=== PATIENT | male | born 1930 | race Caucasian/White ===

== ENCOUNTER 2017-12-09 11:43 | Emergency (ER) | payer OTHER ==
[~2017-12-09] VITALS: Ht 177.8 cm; Wt 103.4 kg
[~2017-12-09 11:43] MED LIST: AGGRENOX CAPSU1 EACH; AGGRENOX CAPSU1 EACH OR; ALLOPURINOL 10100 M1 OR; ALLOPURINOL 10100 M1 PO; BACTRIM DS TAB1 EACH PO; CARVEDILOL6.25 MG; CIPRO500 MG PO; COLACE100 MG PO; COREG; COREG6.25 MG PO; COUMADIN 5 MG TA5 M1 PO; FISH OIL 1,0001 EAC5; GLIPIZIDE ER2.5 MG PO; GLIPIZIDE XL2.5 MG PO; LISINOPRIL40 MG PO; LOPID600 MG OR; LOPID600 MG PO; LOVASTATIN 20 M20 MG PO; MACROBID 100 M100 M2 PO; MAGNESIUM OXID400 MG PO; MELATONIN3 MG PO; MIRALAX17 GM PO; MULTIVITAMINS; MULTIVITAMINS PO; MULTIVITAMINS1 EAC7 PO; NIACIN 500 MG500 M1 PO; NIASPAN 500 MG500 M1 PO; OMEGA-31000 M1 PO; ONDANSETRON HCL4 M2 PO; PRAVACHOL40 MG; PRAVASTATIN SOD40 MG PO; PRINIVIL5 MG PO; PYRIDOXINE HCL50 MG; PYRIDOXINE HCL50 MG PO; TYLENOL325 MG PO; VERAPAMIL ER120 MG PO; VITAMIN B-12500 MCG PO; VITAMIN B-625 MG PO
[2017-12-09 11:58] LABS: URINE BILIRUBIN NEGATIVE (Negative); URINE BLOOD 3+ (Negative); URINE CLARITY CLEAR; URINE COLOR YELLOW; URINE GLUCOSE-RANDOM NEGATIVE (Negative); URINE KETONES NEGATIVE (Negative); URINE LEUKOCYTES-REFLEX 1+ (Negative); URINE NITRITE-REFLEX NEGATIVE (Negative); URINE PROTEIN 2+ (Negative); URINE SPECIFIC GRAVITY 1.015 (1.005-1.030); URINE UROBILINOGEN 0.2 E.U./dl (0.2-1.0)
[2017-12-09 12:06] LABS: BACTERIA-REFLEX 1-9 Few /HPF (None Seen); CASTS None Seen /LPF (None Seen); CRYSTALS None Seen /LPF (None Seen); MUCUS 0-3 Light strn/LPF (None Seen); SQUAMOUS 0-3 Few /LPF (0-3); URINE WBC-REFLEX 6-15 Few /HPF (0-5)
[2017-12-09] MEDS ORDERED: KEFLEX500 M1 PO (12:17)
[2017-12-09 12:38] VITALS: BP 142/61
== END 2017-12-09 12:40 | disposition home or self-care (01) ==
LOC: M.ERS 11:43
PROVIDERS: Emergency Medicine Emergency Medical Services
DX: N39.0 Urinary tract infection, site not specified (principal); E11.22 Type 2 diabetes mellitus with diabetic chronic kidney disease; N18.9 Chronic kidney disease, unspecified; G43.909 Migraine, unspecified, not intractable, without status migrainosus; Z85.828 Personal history of other malignant neoplasm of skin; Z86.73 Personal history of transient ischemic attack (TIA), and cerebral infarction without residual deficits; Z79.899 Other long term (current) drug therapy; Z88.0 Allergy status to penicillin; Z88.5 Allergy status to narcotic agent; Z88.8 Allergy status to other drugs, medicaments and biological substances

== ENCOUNTER → 2017-12-14 | Outpatient (CLI) | payer OTHER ==
[~2017-12-14] MED LIST changes: +KEFLEX500 M1 PO
== END ==
LOC: M.ULTRA 10:18
DX: E11.9 Type 2 diabetes mellitus without complications (principal); G47.33 Obstructive sleep apnea (adult) (pediatric); G43.909 Migraine, unspecified, not intractable, without status migrainosus

== ENCOUNTER → 2019-04-24 | Outpatient (CLI) | payer OTHER ==
[~2019-04-24] MED LIST changes: +B COMPLEX1 EACH PO; +GLIMEPIRIDE1 MG PO; +MAGNESIUM500 MG PO; +PRESERVISION A1 EAC2 PO
== END ==
LOC: M.PC 08:29
DX: M75.42 Impingement syndrome of left shoulder (principal); M79.602 Pain in left arm; Z88.5 Allergy status to narcotic agent; Z88.0 Allergy status to penicillin; Z88.8 Allergy status to other drugs, medicaments and biological substances

== ENCOUNTER → 2019-04-28 | Outpatient (CLI) | payer OTHER | LOC: M.MRI 07:02 | DX: M75.102 Unspecified rotator cuff tear or rupture of left shoulder, not specified as traumatic (principal); M19.012 Primary osteoarthritis, left shoulder ==

== ENCOUNTER 2019-06-13 15:22 | Inpatient (IN) | payer OTHER ==
[~2019-06-13] VITALS: Ht 175.3 cm; Wt 94.3 kg
[2019-06-13 15:51] VITALS: BP 133/67
[2019-06-13 16:42] LABS: ABSOLUTE LYMPHOCYTES 0.8 thou/uL (0.8-5.3); ABSOLUTE MONOCYTES 0.8 thou/uL (0.0-1.2); BASOPHILS 0.7 %; EOSINOPHILS 0.2 %; HEMATOCRIT 42.1 % (42.0-52.0); HEMOGLOBIN 14.4 gm/dL (14.0-18.0); MCH 28.6 pg (26.0-34.0); MCHC 34.2 g/dL (28.0-37.0); MCV 83.7 fL (80.0-100.0); MONOCYTES 16.7 %; MPV 8.1 fl. (7.2-11.1); NUCLEATED RBCS 0 /100WBC; PLATELET COUNT* 217 thou/uL (150-400); POLYS 64.4 %; RBC 5.03 mil/uL (4.50-6.00); WBC 4.6 thou/uL (4.0-11.0)
[2019-06-13 16:45] LABS: CALCIUM 10.1 mg/dL (8.5-10.1); CREATININE 2.2 mg/dL (0.6-1.3); POTASSIUM 4.2 mmol/L (3.5-5.1)
[2019-06-13 16:56] LABS: ALBUMIN 3.4 g/dL (3.4-5.0); TOTAL BILIRUBIN 0.4 mg/dL (<0.1-1.0); TOTAL PROTEIN 7.7 g/dL (6.4-8.2)
[2019-06-13 16:58] LABS: PCO2 26.2 mmHg (35.0-45.0); PO2 70.3 mmHg (75.0-100.0)
[2019-06-13 17:00] LABS: INR 16.3; PROTIME 151.2 Seconds (9.20-11.50)
[2019-06-13 20:28] VITALS: BP 111/55
[2019-06-13 20:32] LABS: PROTIME 155.7 Seconds (9.20-11.50)
[2019-06-13 20:41] LABS: INR 16.9
[2019-06-13 21:27] VITALS: BP 149/68
[2019-06-14] VITALS: BP 113/63
[2019-06-14 04:00] VITALS: BP 136/74
[2019-06-14 04:42] LABS: URINE BILIRUBIN NEGATIVE (Negative); URINE BLOOD 1+ (Negative); URINE CLARITY CLEAR; URINE COLOR YELLOW; URINE GLUCOSE-RANDOM NEGATIVE (Negative); URINE KETONES TRACE (Negative); URINE LEUKOCYTES-REFLEX TRACE (Negative); URINE PROTEIN 2+ (Negative); URINE SPECIFIC GRAVITY 1.025 (1.005-1.030); URINE UROBILINOGEN 0.2 E.U./dl (0.2-1.0)
[2019-06-14 04:47] LABS: URINE NITRITE-REFLEX POSITIVE (Negative)
[2019-06-14 05:18] LABS: CASTS None Seen /LPF (None Seen); CRYSTALS None Seen /LPF (None Seen); MUCUS 0-3 Light strn/LPF (None Seen); SQUAMOUS 0-3 Few /LPF (0-3); URINE RBC 3-10 Few /HPF (0-2)
[2019-06-14 05:28] LABS: ABSOLUTE LYMPHOCYTES 0.8 thou/uL (0.8-5.3); ABSOLUTE MONOCYTES 0.7 thou/uL (0.0-1.2); ABSOLUTE NEUTROPHILS 2.9 thou/uL (1.6-8.1); BASOPHILS 0.3 %; HEMATOCRIT 41.5 % (42.0-52.0); HEMOGLOBIN 14.2 gm/dL (14.0-18.0); LYMPHOCYTES 18.8 %; MCH 28.6 pg (26.0-34.0); MCHC 34.2 g/dL (28.0-37.0); MCV 83.9 fL (80.0-100.0); MONOCYTES 16.5 %; MPV 7.8 fl. (7.2-11.1); NUCLEATED RBCS 0 /100WBC; PLATELET COUNT* 220 thou/uL (150-400); POLYS 64.4 %; RBC 4.94 mil/uL (4.50-6.00); RDW-CV 16.5 % (10.5-14.5); WBC 4.5 thou/uL (4.0-11.0)
[2019-06-14] MEDS ORDERED: VITAMIN B-121000 MC2 PO (05:29)
[2019-06-14] MEDS ORDERED: Vitamin D3 PO (05:30)
[2019-06-14] MEDS ORDERED: MUCUS ER600 M1 PO (05:31)
[2019-06-14] MEDS ORDERED: EPIDIOLEX100 MG/1 M PO (05:33)
[2019-06-14 05:34] LABS: PROTIME 133.4 Seconds (9.20-11.50)
[2019-06-14 05:37] LABS: INR 14.4
[2019-06-14 05:52] LABS: ALBUMIN 3.2 g/dL (3.4-5.0); CALCIUM 9.8 mg/dL (8.5-10.1); CREATININE 1.8 mg/dL (0.6-1.3); MAGNESIUM 2.2 mg/dL (1.8-2.4); PHOSPHORUS* 2.9 mg/dL (2.5-4.9); POTASSIUM 3.8 mmol/L (3.5-5.1); TOTAL BILIRUBIN 0.4 mg/dL (<0.1-1.0); TOTAL PROTEIN 7.2 g/dL (6.4-8.2)
[2019-06-14 08:31] VITALS: BP 138/67
[2019-06-14 12:00] VITALS: BP 153/88
[2019-06-14 13:41] LABS: PROTIME 102.4 Seconds (9.20-11.50)
[2019-06-14 13:45] LABS: INR 10.9
[2019-06-14 16:00] VITALS: BP 137/66
[2019-06-14 20:00] VITALS: BP 128/58
[2019-06-15 03:40] VITALS: BP 122/52
[2019-06-15 04:23] LABS: ABSOLUTE LYMPHOCYTES 0.7 thou/uL (0.8-5.3); ABSOLUTE MONOCYTES 0.7 thou/uL (0.0-1.2); ABSOLUTE NEUTROPHILS 3.2 thou/uL (1.6-8.1); BASOPHILS 0.2 %; EOSINOPHILS 0.1 %; HEMATOCRIT 40.5 % (42.0-52.0); HEMOGLOBIN 13.7 gm/dL (14.0-18.0); MCH 28.6 pg (26.0-34.0); MCHC 33.9 g/dL (28.0-37.0); MCV 84.4 fL (80.0-100.0); MONOCYTES 14.9 %; MPV 7.8 fl. (7.2-11.1); NUCLEATED RBCS 0 /100WBC; PLATELET COUNT* 224 thou/uL (150-400); POLYS 69.8 %; RDW-CV 16.1 % (10.5-14.5); WBC 4.5 thou/uL (4.0-11.0)
[2019-06-15 04:39] LABS: PROTIME 18.1 Seconds (9.20-11.50)
[2019-06-15 04:42] LABS: ALBUMIN 2.8 g/dL (3.4-5.0); CALCIUM 10.1 mg/dL (8.5-10.1); CREATININE 1.8 mg/dL (0.6-1.3); MAGNESIUM 2.1 mg/dL (1.8-2.4); PHOSPHORUS* 2.9 mg/dL (2.5-4.9); POTASSIUM 3.8 mmol/L (3.5-5.1)
[2019-06-15 04:45] LABS: INR 1.8
[2019-06-15 09:30] VITALS: BP 127/107
--- NOTE | 2019-06-15 11:11 | CON ---
[address] [address] CONSULTATION Name: KAREN STARKEY Room: [address] IN M.R.#: [id number] Admission: 06/13/19 Attend Phys: Beatriz James Discharge: Date of : 32 Report #: [id number] THIS REPORT FOR: //name// cc: LIZZ BELLA MD, HEATHER L. MD ~ THIS REPORT FOR: //name// CC: Beatriz Falcon DATE OF SERVICE: 06/14/2019 INFECTIOUS DISEASE CONSULTATION ATTENDING PHYSICIAN: eBatriz Le MD REASON FOR EVALUATION: Pneumonitis, possible COVID. HISTORY OF PRESENT ILLNESS: Chart reviewed, patient examined. This is an 88-year-old gentleman with history of strokes, has some mild expressive aphasia, have some dementia, who has been ill for the last several days, was evaluated by his PCP, had negative influenza antigen, COVID was collected and is in progress. There is question of pneumonitis. Subsequently, developed some chills with worsening short of breath. He has had some cough and ultimately had fevers to as high as 103. He subsequently developed some nausea, emesis and diarrhea over the last couple of days prior to admission as well. Evaluation suspected dehydration, elevated creatinine to 2.2 with BUN of 52. ABGs: pH 7.470, pCO2 of 26.2, pO2 of 70.3 on room air. Chest x-ray showed multifocal interstitial and airspace infiltrates. Urinalysis showed 16-25 white cells, 10-30 bacteria. He has had low-grade temperature elevations since admission. Urine culture in progress. He is empirically started on therapy with azithromycin, ceftriaxone, hydroxychloroquine. ALLERGIES: PENICILLIN, MORPHINE, CODEINE, GABAPENTIN. CURRENT MEDICATIONS: Include melatonin, niacin, aztreonam, ceftriaxone, glimepiride, atorvastatin, allopurinol, lactobacillus, zinc, ascorbic acid, carvedilol, pravastatin, hydroxychloroquine. PAST MEDICAL HISTORY: As noted above, previous history of strokes, TIAs, diabetes mellitus, chronic renal insufficiency, history of migraines, sleep apnea requiring CPAP. SOCIAL HISTORY: Former smoker. No ethanol. No illicit drug use. FAMILY HISTORY: [place] [address] CONSULTATION Name: FRANCES STARKEYSusan Tovar Room: [address]#: [id number] Admission: 06/13/19 Attend Phys: Beatriz James Discharge: Date of : 32 Report #: [id number] REVIEW OF SYSTEMS: Somewhat limited, otherwise not clarifying. Denies any significant gastrointestinal-related complaints at this point. PHYSICAL EXAMINATION: GENERAL: Appears somewhat chronically ill, undernourished. He has zcvt-ye-mniygmyp distress. VITAL SIGNS: Temperature 99.1, pulse 87, respirations 20, blood pressure is 138/67. SKIN: Warm, rashes. HEENT: Normocephalic. Extraocular muscles intact. Does have nasal cannula in place. NECK: Supple. LUNGS: Few scattered coarse breath sounds. HEART: Regular, soft systolic murmur. Occasional ectopy. ABDOMEN: Soft, nontender, nondistended. EXTREMITIES: No cyanosis. GENITOURINARY: Deferred. RECTAL: Deferred. LABORATORY DATA: Electrolytes: Sodium 141, potassium 3.8, chloride 105, bicarbonate is 23, anion gap of 13, BUN and creatinine 46 and 1.8, has down from 2.2. AST of 44, ALT of 30. Albumin of 3.2. CBC: White count 45, H and H 14.2 and 41.5, platelets of 220. Does have a lymphocyte count of 800. Urinalysis; white count of 16-25. Chest x-ray as described above. ASSESSMENT: Febrile illness, likely has a component of complicated urinary tract infection as well as pneumonitis. Continue combination therapy at this point, await the COVID results. Assuming, may have a secondary or primary bacterial infection as well. We will go ahead and check blood cultures. He remains quite tenuous at this point. Monitor expectantly. <ELECTRONICALLY SIGNED> By: Jose Marcano MD 06/15/19 1111 1332 1443Joarely Marcano MD /nt
[2019-06-15 12:30] VITALS: BP 126/56
[2019-06-15 17:03] VITALS: BP 134/64
[2019-06-15 21:00] VITALS: BP 136/60
[2019-06-16] VITALS: BP 133/58
[2019-06-16 02:07] LABS: GLYCOHEMOGLOBIN (HGB A1C) 6.9 % (4.8-5.6)
[2019-06-16 04:00] VITALS: BP 153/63
[2019-06-16 08:00] VITALS: BP 149/66
[2019-06-16 12:22] VITALS: BP 137/72
[2019-06-16 16:00] VITALS: BP 141/60
[2019-06-16 16:56] LABS: HEMATOCRIT 42.9 % (42.0-52.0); HEMOGLOBIN 14.7 gm/dL (14.0-18.0); MCH 28.8 pg (26.0-34.0); MCHC 34.2 g/dL (28.0-37.0); MCV 84.1 fL (80.0-100.0); MPV 8.1 fl. (7.2-11.1); NUCLEATED RBCS 0 /100WBC; PLATELET COUNT* 288 thou/uL (150-400); WBC 5.8 thou/uL (4.0-11.0)
[2019-06-16 17:07] LABS: ALBUMIN 2.8 g/dL (3.4-5.0); CALCIUM 10.9 mg/dL (8.5-10.1); CREATININE 1.8 mg/dL (0.6-1.3); MAGNESIUM 2.3 mg/dL (1.8-2.4); PHOSPHORUS* 3.1 mg/dL (2.5-4.9); POTASSIUM 3.3 mmol/L (3.5-5.1); TOTAL BILIRUBIN 0.4 mg/dL (<0.1-1.0); TOTAL PROTEIN 7.5 g/dL (6.4-8.2)
[2019-06-16 17:17] LABS: ABSOLUTE LYMPHOCYTES 0.9 thou/uL (0.8-5.3); ABSOLUTE MONOCYTES 0.3 thou/uL (0.0-1.2); ABSOLUTE NEUTROPHILS 4.5 thou/uL (1.6-8.1); ATYPICAL LYMPHS 3 %; METAMYELOCYTES 2 %; PLATELET ESTIMATE ADEQUATE
[2019-06-16 20:00] VITALS: BP 141/58
[2019-06-17] VITALS (7 sets, daily range): BP systolic 91–153; BP diastolic 40–67
[2019-06-17 05:50] LABS: ABSOLUTE LYMPHOCYTES 0.6 thou/uL (0.8-5.3); ABSOLUTE MONOCYTES 0.7 thou/uL (0.0-1.2); ABSOLUTE NEUTROPHILS 3.9 thou/uL (1.6-8.1); BASOPHILS 0.1 %; EOSINOPHILS 0.1 %; HEMATOCRIT 41.3 % (42.0-52.0); HEMOGLOBIN 13.5 gm/dL (14.0-18.0); LYMPHOCYTES 11.5 %; MCH 27.7 pg (26.0-34.0); MCHC 32.8 g/dL (28.0-37.0); MCV 84.7 fL (80.0-100.0); MONOCYTES 14.3 %; MPV 8.3 fl. (7.2-11.1); NUCLEATED RBCS 0 /100WBC; PLATELET COUNT* 258 thou/uL (150-400); RBC 4.88 mil/uL (4.50-6.00); RDW-CV 16.4 % (10.5-14.5); WBC 5.2 thou/uL (4.0-11.0)
[2019-06-17 06:16] LABS: ALBUMIN 2.4 g/dL (3.4-5.0); CALCIUM 10.2 mg/dL (8.5-10.1); CREATININE 1.7 mg/dL (0.6-1.3); POTASSIUM 3.5 mmol/L (3.5-5.1); TOTAL BILIRUBIN 0.5 mg/dL (<0.1-1.0); TOTAL PROTEIN 6.8 g/dL (6.4-8.2)
[2019-06-17 15:39] LABS: INR 1.4; PROTIME 13.9 Seconds (9.20-11.50)
[2019-06-18] VITALS: BP 136/52
[2019-06-18 04:00] VITALS: BP 157/65
[2019-06-18 05:33] LABS: ABSOLUTE LYMPHOCYTES 0.7 thou/uL (0.8-5.3); ABSOLUTE MONOCYTES 0.8 thou/uL (0.0-1.2); ABSOLUTE NEUTROPHILS 5.2 thou/uL (1.6-8.1); BASOPHILS 0.1 %; EOSINOPHILS 0.3 %; HEMOGLOBIN 13.7 gm/dL (14.0-18.0); LYMPHOCYTES 10.2 %; MCH 28.2 pg (26.0-34.0); MCHC 33.3 g/dL (28.0-37.0); MCV 84.7 fL (80.0-100.0); MONOCYTES 11.8 %; NUCLEATED RBCS 0 /100WBC; PLATELET COUNT* 261 thou/uL (150-400); POLYS 77.6 %; RBC 4.84 mil/uL (4.50-6.00); RDW-CV 16.2 % (10.5-14.5); WBC 6.7 thou/uL (4.0-11.0)
[2019-06-18 06:04] LABS: ALBUMIN 2.4 g/dL (3.4-5.0); CREATININE 1.4 mg/dL (0.6-1.3); MAGNESIUM 1.9 mg/dL (1.8-2.4); POTASSIUM 3.6 mmol/L (3.5-5.1); TOTAL BILIRUBIN 0.5 mg/dL (<0.1-1.0); TOTAL PROTEIN 6.8 g/dL (6.4-8.2)
[2019-06-18 12:00] VITALS: BP 140/58
[2019-06-18 12:49] VITALS: BP 150/76
[2019-06-18 16:00] VITALS: BP 121/59
[2019-06-18 21:04] VITALS: BP 122/56
[2019-06-19] VITALS: BP 121/46
[2019-06-19 04:00] VITALS: BP 143/65
[2019-06-19 08:30] VITALS: BP 149/67
[2019-06-19 11:38] LABS: ABSOLUTE BASOPHILS 0.1 thou/uL (0.0-0.2); ABSOLUTE EOSINOPHILS 0.1 thou/uL (0.0-0.7); ABSOLUTE LYMPHOCYTES 0.9 thou/uL (0.8-5.3); ABSOLUTE MONOCYTES 0.6 thou/uL (0.0-1.2); ABSOLUTE NEUTROPHILS 5.2 thou/uL (1.6-8.1); BASOPHILS 0.8 %; EOSINOPHILS 0.8 %; HEMATOCRIT 38.5 % (42.0-52.0); HEMOGLOBIN 13.1 gm/dL (14.0-18.0); LYMPHOCYTES 13.2 %; MCH 28.3 pg (26.0-34.0); MCHC 34.1 g/dL (28.0-37.0); MONOCYTES 9.2 %; MPV 8.5 fl. (7.2-11.1); NUCLEATED RBCS 0 /100WBC; PLATELET COUNT* 283 thou/uL (150-400); RBC 4.64 mil/uL (4.50-6.00); RDW-CV 16.2 % (10.5-14.5); WBC 6.8 thou/uL (4.0-11.0)
[2019-06-19 11:41] LABS: PROTIME 29.4 Seconds (9.20-11.50)
[2019-06-19 11:50] LABS: ALBUMIN 2.2 g/dL (3.4-5.0); CALCIUM 9.8 mg/dL (8.5-10.1); CREATININE 1.1 mg/dL (0.6-1.3); MAGNESIUM 1.7 mg/dL (1.8-2.4); POTASSIUM 3.5 mmol/L (3.5-5.1); TOTAL BILIRUBIN 0.3 mg/dL (<0.1-1.0); TOTAL PROTEIN 6.5 g/dL (6.4-8.2)
[2019-06-19 12:00] VITALS: BP 127/49
[2019-06-19 12:11] LABS: URINE BILIRUBIN NEGATIVE (Negative); URINE BLOOD TRACE (Negative); URINE CLARITY CLEAR; URINE COLOR YELLOW; URINE GLUCOSE-RANDOM 1+ (Negative); URINE KETONES NEGATIVE (Negative); URINE LEUKOCYTES-REFLEX 1+ (Negative); URINE NITRITE-REFLEX NEGATIVE (Negative); URINE PROTEIN 2+ (Negative); URINE SPECIFIC GRAVITY >= 1.030 (1.005-1.030); URINE UROBILINOGEN 0.2 E.U./dl (0.2-1.0)
[2019-06-19 12:25] LABS: SQUAMOUS 4-10 Moderate /LPF (0-3); URINE RBC 0-2 Rare /HPF (0-2); URINE WBC-REFLEX 6-15 Few /HPF (0-5)
[2019-06-19 12:26] LABS: BACTERIA-REFLEX None Seen /HPF (None Seen)
[2019-06-19 12:27] LABS: CRYSTALS None Seen /LPF (None Seen); HYALINE CASTS 0-3 Few /LPF (None Seen); MUCUS 0-3 Light strn/LPF (None Seen)
--- NOTE | 2019-06-19 12:49 | CON ---
[address] [address] CONSULTATION Name: JAKYKAREN Room: [address] IN M.R.#: [id number] Admission: 06/13/19 Attend Phys: Beatriz James Discharge: Date of : 32 Report #: [id number] THIS REPORT FOR: //name// cc: LIZZ GONZALEZ MD, HEATHER L. MD ~ THIS REPORT FOR: //name// CC: Beatriz Gonzalez MD CARDIOLOGY CONSULTATION INDICATION: Chest discomfort and abnormal EKG. HISTORY OF PRESENT ILLNESS: The patient is a very pleasant 88-year-old gentleman who was admitted to the hospital on 06/12 through the Emergency Room with ongoing illness consisting of symptoms of shortness of breath, fever, nausea, vomiting and diarrhea and possible pneumonia. Fever has been as high as 103 degrees. The patient has been receiving supportive care including supplemental oxygen, IV antibiotics. The patient has a minimally productive cough that is ongoing. Today's chest x-ray shows mild bilateral infiltrates, right greater than the left. COVID-19 testing pending. The patient had a repeat EKG today when complaining of some chest discomfort. This shows a sinus rhythm with right bundle branch block and slightly prolonged QT interval. I do not appreciate acute ST segment elevation. His troponin in the setting was less than 0.06. Compared to his initial EKG on arrival there have not been any significant changes with the exception of slight prolongation of his QT interval. Upon interview, the patient complains of fatigue, cough and generalized myalgias. He has worsening of his chest pain with deep breath or cough. He does report having cardiac catheterization twice in the past. At both times he was told that he did not have any lesions that were significant enough to require intervention. He denies any history of myocardial infarction. PAST MEDICAL HISTORY: 1. Type 2 diabetes mellitus. 2. Chronic renal insufficiency. 3. History of transient ischemic attack x 5 in the past. 4. History of stroke 7 times in the past. 5. History of skin cancer, status post resection. 6. Skull fracture x 2. 7. Right knee replacement. 8. [place] [address] CONSULTATION Name: KAREN STARKEY Room: [address]#: [id number] Admission: 06/13/19 Attend Phys: Beatriz James Discharge: Date of : 32 Report #: [id number] 9. Obstructive sleep apnea. FAMILY HISTORY: Noncontributory. SOCIAL HISTORY: The patient quit smoking remotely. He does not drink alcohol. HOME MEDICATIONS: Glimepiride 2 mg daily, vitamin B complex 5000 mg daily, magnesium oxide 500 mg daily, PreserVision gel capsule 1 b.i.d., Lopid 600 mg b.i.d., niacin 500 mg at bedtime, fish oil 1000 mg daily, carvedilol 6.25 mg b.i.d., melatonin 10 mg daily, warfarin 5 mg as directed for INR, allopurinol 100 mg daily, verapamil ER 120 mg b.i.d., multivitamin 1 tablet daily, lovastatin 40 mg daily, Tylenol p.r.n. PHYSICAL EXAMINATION: VITAL SIGNS: Blood pressure 126/56, pulse 84. Current temperature 98.8. High temperature this morning 102.5. GENERAL: This is an elderly gentleman who appears moderately chronically ill. He is in no acute distress. HEENT: Head is normocephalic, atraumatic. Extraocular muscles intact. Glasses are present. Mucous membranes dry. NECK: Shows no jugular venous distention. CHEST: Reveals clear lung noonan anteriorly. CARDIOVASCULAR: Reveals a regular rhythm without gallop or murmur. ABDOMEN: Reveals normal bowel sounds. The abdomen is soft and nontender. EXTREMITIES: Shows no edema. SKIN: Dry. LABORATORY DATA: Reviewed. Sodium 143, potassium 3.8, chloride 108, bicarbonate 24, BUN 39, creatinine 1.8, serum glucose 145. LFTs are within normal limits. Albumin 2.8. Lactic acid 1.2, INR 1.8. White blood cell count 4.5, hemoglobin 13.7 and platelet count 224,000. IMPRESSION AND RECOMMENDATIONS: 1. Chest discomfort, atypical for angina. This is likely due to underlying pneumonia. His initial cardiac enzyme is unremarkable. I would serial enzymes, but doubt this will show any evidence of infarction. 2. History of coronary artery disease based on the patient's description. He is not having unstable symptoms at this time. He is not on a daily aspirin. He is chronically anticoagulated with warfarin, presumably this is for his cerebrovascular disease. I would continue lipid lowering as outlined above. 3. QT prolongation on EKG, possibly secondary to azithromycin. The QT interval is not markedly prolonged at this point in time. I believe he could complete course of azithromycin. Repeating EKG later this evening to follow up. 4. Diabetes, treatment per primary physician. 5. Possible history of hypertension. Based on the patient's home medication regimen. Blood pressure appears stable at this point in time. [facility] [address] [place] [address] CONSULTATION Name: KAREN STARKEY Room: [address] IN ..#: [id number] Admission: 06/13/19 Attend Phys: Beatriz ortiz Deland Discharge: Date of : 32 Report #: [id number] 6. Upper respiratory tract infection consistent with pneumonia. COVID testing pending. The patient is in an appropriate isolation. <ELECTRONICALLY SIGNED> By: Bill Woo MD, FACC 06/19/19 1249 1639 1711Micleonela Woo MD, FACC /nt
[2019-06-19 16:52] VITALS: BP 134/94
[2019-06-19 20:00] VITALS: BP 118/49
[2019-06-20 00:08] VITALS: BP 150/66
[2019-06-20 04:39] VITALS: BP 135/59
[2019-06-20 06:25] LABS: NUCLEATED RBCS 0 /100WBC; WBC 6.5 thou/uL (4.0-11.0)
[2019-06-20 06:31] LABS: INR 2.6; PROTIME 26.1 Seconds (9.20-11.50)
[2019-06-20 06:32] LABS: HEMATOCRIT 34.4 % (42.0-52.0); HEMOGLOBIN 11.9 gm/dL (14.0-18.0); MCH 28.6 pg (26.0-34.0); MCHC 34.6 g/dL (28.0-37.0); MCV 82.8 fL (80.0-100.0); MPV 8.5 fl. (7.2-11.1); PLATELET COUNT* 263 thou/uL (150-400); RBC 4.16 mil/uL (4.50-6.00); RDW-CV 15.8 % (10.5-14.5)
[2019-06-20 06:37] LABS: CALCIUM 9.3 mg/dL (8.5-10.1); POTASSIUM 3.2 mmol/L (3.5-5.1); TOTAL BILIRUBIN 0.4 mg/dL (<0.1-1.0); TOTAL PROTEIN 5.9 g/dL (6.4-8.2)
[2019-06-20 07:44] LABS: ABSOLUTE BASOPHILS 0.1 thou/uL (0.0-0.2); ABSOLUTE LYMPHOCYTES 1.2 thou/uL (0.8-5.3); ABSOLUTE MONOCYTES 0.7 thou/uL (0.0-1.2); ABSOLUTE NEUTROPHILS 4.6 thou/uL (1.6-8.1)
[2019-06-20 07:45] LABS: PLATELET ESTIMATE ADEQUATE
[2019-06-20 07:50] VITALS: BP 137/65
[2019-06-20 16:00] VITALS: BP 144/72
[2019-06-21 00:12] VITALS: BP 129/54
[2019-06-21 05:09] VITALS: BP 124/51
[2019-06-21 07:00] LABS: ABSOLUTE BASOPHILS 0.1 thou/uL (0.0-0.2); ABSOLUTE EOSINOPHILS 0.1 thou/uL (0.0-0.7); ABSOLUTE LYMPHOCYTES 0.9 thou/uL (0.8-5.3); ABSOLUTE MONOCYTES 0.6 thou/uL (0.0-1.2); ABSOLUTE NEUTROPHILS 5.5 thou/uL (1.6-8.1); BASOPHILS 1.3 %; EOSINOPHILS 0.9 %; HEMATOCRIT 33.6 % (42.0-52.0); HEMOGLOBIN 11.5 gm/dL (14.0-18.0); LYMPHOCYTES 11.9 %; MCH 28.1 pg (26.0-34.0); MCHC 34.2 g/dL (28.0-37.0); MCV 82.3 fL (80.0-100.0); MONOCYTES 8.8 %; MPV 8.6 fl. (7.2-11.1); NUCLEATED RBCS 0 /100WBC; PLATELET COUNT* 281 thou/uL (150-400); POLYS 77.1 %; RBC 4.09 mil/uL (4.50-6.00); WBC 7.2 thou/uL (4.0-11.0)
[2019-06-21 07:14] LABS: INR 2.5; PROTIME 25.1 Seconds (9.20-11.50)
[2019-06-21 07:19] LABS: CALCIUM 9.2 mg/dL (8.5-10.1); CREATININE 1.1 mg/dL (0.6-1.3); MAGNESIUM 1.7 mg/dL (1.8-2.4); PHOSPHORUS* 1.8 mg/dL (2.5-4.9); POTASSIUM 3.8 mmol/L (3.5-5.1); TOTAL BILIRUBIN 0.5 mg/dL (<0.1-1.0)
[2019-06-21 08:45] VITALS: BP 126/76
[2019-06-21 12:05] VITALS: BP 126/59
[2019-06-21 12:15] LABS: BE -0.4 mmol/L (-2 to +3); PCO2 35.2 mmHg (35.0-45.0); PO2 67.7 mmHg (75.0-100.0); pH 7.437 (7.340-7.450)
[2019-06-21 16:00] VITALS: BP 124/57
[2019-06-21 19:40] VITALS: BP 99/33
[2019-06-22 04:00] VITALS: BP 126/56
[2019-06-22 06:05] LABS: CALCIUM 9.3 mg/dL (8.5-10.1); MAGNESIUM 1.9 mg/dL (1.8-2.4); PHOSPHORUS* 2.7 mg/dL (2.5-4.9); POTASSIUM 3.5 mmol/L (3.5-5.1)
[2019-06-22 08:35] VITALS: BP 140/61
[2019-06-22 10:53] LABS: ABSOLUTE LYMPHOCYTES 0.8 thou/uL (0.8-5.3); ABSOLUTE MONOCYTES 0.4 thou/uL (0.0-1.2); ABSOLUTE NEUTROPHILS 2.3 thou/uL (1.6-8.1); EOSINOPHILS 0.7 %; HEMATOCRIT 32.9 % (42.0-52.0); HEMOGLOBIN 11.1 gm/dL (14.0-18.0); LYMPHOCYTES 23.3 %; MCH 28.3 pg (26.0-34.0); MCHC 33.9 g/dL (28.0-37.0); MCV 83.5 fL (80.0-100.0); MONOCYTES 11.9 %; MPV 8.9 fl. (7.2-11.1); NUCLEATED RBCS 0 /100WBC; PLATELET COUNT* 272 thou/uL (150-400); POLYS 63.1 %; RBC 3.93 mil/uL (4.50-6.00); RDW-CV 15.8 % (10.5-14.5); WBC 3.6 thou/uL (4.0-11.0)
[2019-06-22 13:50] VITALS: BP 120/47
[2019-06-22 16:40] VITALS: BP 124/51
[2019-06-22 20:00] VITALS: BP 153/67
[2019-06-23 04:00] VITALS: BP 134/54
[2019-06-23 05:02] LABS: ABSOLUTE LYMPHOCYTES 0.9 thou/uL (0.8-5.3); ABSOLUTE MONOCYTES 0.4 thou/uL (0.0-1.2); BASOPHILS 0.7 %; EOSINOPHILS 0.9 %; HEMATOCRIT 34.4 % (42.0-52.0); HEMOGLOBIN 11.7 gm/dL (14.0-18.0); LYMPHOCYTES 20.7 %; MCH 28.1 pg (26.0-34.0); MCHC 33.9 g/dL (28.0-37.0); MCV 82.9 fL (80.0-100.0); MPV 8.1 fl. (7.2-11.1); NUCLEATED RBCS 0 /100WBC; PLATELET COUNT* 315 thou/uL (150-400); POLYS 67.7 %; RBC 4.16 mil/uL (4.50-6.00); RDW-CV 16.1 % (10.5-14.5); WBC 4.4 thou/uL (4.0-11.0)
[2019-06-23 05:19] LABS: MAGNESIUM 1.8 mg/dL (1.8-2.4); PHOSPHORUS* 2.6 mg/dL (2.5-4.9)
[2019-06-23 05:51] LABS: ALBUMIN 2.3 g/dL (3.4-5.0); CALCIUM 9.3 mg/dL (8.5-10.1); CREATININE 1.1 mg/dL (0.6-1.3); POTASSIUM 3.9 mmol/L (3.5-5.1); TOTAL BILIRUBIN 0.4 mg/dL (<0.1-1.0); TOTAL PROTEIN 5.6 g/dL (6.4-8.2)
[2019-06-23 07:57] VITALS: BP 133/61
[2019-06-23 12:16] VITALS: BP 145/80
--- NOTE | 2019-06-23 12:17 | EKG ---
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 : 1930 Requested By: Giuseppe Sheffield Order Number: [id number] MD: Satish Mccray Measurements Intervals [place] Rate: 83 P: 28 WI: 185 QRS: -1 QRSD: 158 T: 0 QT: 451 QTc: 530 Interpretive Statements Sinus rhythm IVCD, consider atypical RBBB Compared to ECG 03/04/2017 12:50:43 No significant changes Electronically Signed On 06-14-2019 13:07:14 CDT by Satish Mccray [email or web address] <ELECTRONICALLY SIGNED> By: Satish Mccray MD, [facility] 06/14/19 1307 1658 1658 Satish Mccray MD, [facility] /EPI
--- NOTE | 2019-06-23 12:19 | EKG ---
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: [facility] : 1930 Requested By: Beatriz Salazar Order Number: [id number] [place] MD: Satish Mccray Measurements Intervals [place] Rate: 78 P: 66 RI: 190 QRS: -6 QRSD: 161 T: 4 QT: 441 QTc: 503 Interpretive Statements Sinus rhythm Right bundle branch block nonspecific sst-t changes Baseline wander in lead(s) V2,V3 Compared to ECG 06/13/2019 16:58:00 no significant change Electronically Signed On 06-16-2019 11:00:31 CDT by Satish Mccray [email or web address] <ELECTRONICALLY SIGNED> By: Satish Mccray MD, FACC 06/16/19 1100 1446 1446 Satish Mccray MD, [facility] /EPI
--- NOTE | 2019-06-23 12:20 | EKG ---
[place] [address] ELECTROCARDIOGRAM REPORT Name: KAREN STARKEY Room: [address] ADM IN M.R.#: [id number] Admission: 06/13/19 Attend Phys: Beatriz ortiz Sa Discharge: Date of : 32 Date of Service: 06/15/192024 Report #: [id number] THIS REPORT FOR: //name// [facility] ED Test Date: 2019-06-15 Test Time: 20:25:14 Pat Name: KAREN STARKEY Department: Room: [address] Gender: M Nailer Operator: KYLAH : 1930 Requested By: Beatriz Salazar Order Number: [id number] [place] MD: Satish Mccray Measurements Intervals [place] Rate: 76 P: 4 NE: 204 QRS: -12 QRSD: 160 T: 17 QT: 444 QTc: 500 Interpretive Statements Sinus rhythm Right bundle branch block Compared to ECG 06/13/2019 16:58:00 No significant changes Electronically Signed On 06-16-2019 11:04:12 CDT by Satish Mccray [email or web address] <ELECTRONICALLY SIGNED> By: Satish Mccray MD, [facility] 06/16/19 1104 24 24 Satish Mccray MD, [facility] /EPI
--- NOTE | 2019-06-23 12:25 | EKG ---
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
--- NOTE | 2019-06-23 14:03 | EKG ---
[place] [address] ELECTROCARDIOGRAM REPORT Name: KAREN STARKEY Room: [address] ADM IN M.R.#: [id number] Admission: 06/13/19 Attend Phys: Beatriz ortiz Sa Discharge: Date of : 32 Date of Service: 06/21/19 1250 Report #: [id number] THIS REPORT FOR: //name// [facility] ED Test Date: 2019-06-21 Test Time: 12:50:55 Pat Name: KAREN STARKEY Department: Room: [address] Gender: M Puller Over: ANNITA : 1930 Requested By: Placido Rob Order Number: [id number] [place] MD: Baljinder Joshi Measurements Intervals [place] Rate: 69 P: -19 MN: 260 QRS: -19 QRSD: 157 T: 18 QT: 464 QTc: 497 Interpretive Statements Sinus rhythm Prolonged [place] interval Right bundle branch block Baseline wander in lead(s) V6 Compared to ECG 06/20/2019 08:19:06 First degree AV block now present Electronically Signed On 06-23-2019 14:01:41 CDT by Baljinder Joshi [email or web address] <ELECTRONICALLY SIGNED> By: Baljinder Joshi MD, FACC 06/23/19 1401 1250 1250 Baljinder Joshi MD, FAC /EPI
--- NOTE | 2019-06-23 15:31 | EKG ---
[place] [address] ELECTROCARDIOGRAM REPORT Name: KAREN STARKEY Room: [address] ADM IN M.R.#: [id number] Admission: 06/13/19 Attend Phys: Beatriz ortiz Sa Discharge: Date of : 32 Date of Service: 06/22/19 1457 Report #: [id number] THIS REPORT FOR: //name// [facility] Test Date: 2019-06-22 Test Time: 14:57:18 Pat Name: KAREN STARKEY Department: Room: [address] Gender: M Load Out Supervisor: DAVINA : 1930 Requested By: Placido Rob Order Number: [id number] [place] MD: Baljinder Joshi Measurements Intervals [place] Rate: 59 P: -5 TN: 235 QRS: -20 QRSD: 163 T: 38 QT: 516 QTc: 512 Interpretive Statements Sinus rhythm Prolonged [place] interval Right bundle branch block Compared to ECG 06/21/2019 12:50:55 rate has slowed Electronically Signed On 06-23-2019 15:29:51 CDT by Baljinder Joshi [email or web address] <ELECTRONICALLY SIGNED> By: Baljinder Joshi MD, [facility] 06/23/19 1529 1457 1457 Baljinder Joshi MD, [facility] /EPI
[2019-06-23 16:51] VITALS: BP 114/57
[2019-06-23 20:00] VITALS: BP 133/67
[2019-06-24] VITALS (7 sets, daily range): BP systolic 120–137; BP diastolic 56–76
[2019-06-24 05:54] LABS: ANION GAP 10 mmol/L (7-16)
[2019-06-24 09:11] LABS: HEMATOCRIT 37.9 % (42.0-52.0); HEMOGLOBIN 12.8 gm/dL (14.0-18.0); MCH 28.2 pg (26.0-34.0); MCHC 33.7 g/dL (28.0-37.0); MCV 83.8 fL (80.0-100.0); MPV 7.9 fl. (7.2-11.1); NUCLEATED RBCS 0 /100WBC; PLATELET COUNT* 322 thou/uL (150-400); RBC 4.53 mil/uL (4.50-6.00); WBC 3.9 thou/uL (4.0-11.0)
[2019-06-24 09:46] LABS: POTASSIUM ND mmol/L (3.5-5.1); SODIUM ND mmol/L (136-145)
[2019-06-24 09:47] LABS: CHLORIDE ND mmol/L (98-107); CO2 ND mmol/L (21-32)
[2019-06-24 09:48] LABS: BUN ND mg/dL (7-18); CREATININE ND mg/dL (0.6-1.3); GLUCOSE ND mg/dL (70-99); SGOT ND U/L (15-37)
[2019-06-24 09:49] LABS: CALCIUM ND mg/dL (8.5-10.1); TOTAL BILIRUBIN ND mg/dL (<0.1-1.0)
[2019-06-24 09:50] LABS: ALKALINE PHOSPHATASE ND U/L (46-116); MAGNESIUM ND mg/dL (1.8-2.4); PHOSPHORUS* ND mg/dL (2.5-4.9); SGPT ND U/L (30-65)
[2019-06-24 09:51] LABS: ALBUMIN ND g/dL (3.4-5.0); TOTAL PROTEIN ND g/dL (6.4-8.2)
[2019-06-24 10:05] LABS: ALBUMIN 2.7 g/dL (3.4-5.0); CALCIUM 9.4 mg/dL (8.5-10.1); CREATININE 1.2 mg/dL (0.6-1.3); MAGNESIUM 1.9 mg/dL (1.8-2.4); PHOSPHORUS* 2.8 mg/dL (2.5-4.9); TOTAL BILIRUBIN 0.3 mg/dL (<0.1-1.0)
[2019-06-24 11:14] LABS: ABSOLUTE LYMPHOCYTES 1.2 thou/uL (0.8-5.3); ABSOLUTE MONOCYTES 0.3 thou/uL (0.0-1.2); ABSOLUTE NEUTROPHILS 2.4 thou/uL (1.6-8.1); PLATELET ESTIMATE ADEQUATE
[2019-06-24 11:15] LABS: ANISOCYTOSIS Occasional
[2019-06-25 04:30] VITALS: BP 125/65
[2019-06-25 05:54] LABS: ABSOLUTE LYMPHOCYTES 1.2 thou/uL (0.8-5.3); ABSOLUTE MONOCYTES 0.6 thou/uL (0.0-1.2); ABSOLUTE NEUTROPHILS 3.8 thou/uL (1.6-8.1); BASOPHILS 0.7 %; EOSINOPHILS 0.5 %; HEMATOCRIT 36.3 % (42.0-52.0); HEMOGLOBIN 12.5 gm/dL (14.0-18.0); LYMPHOCYTES 20.6 %; MCH 28.7 pg (26.0-34.0); MCHC 34.4 g/dL (28.0-37.0); MCV 83.3 fL (80.0-100.0); MONOCYTES 10.7 %; MPV 7.4 fl. (7.2-11.1); NUCLEATED RBCS 0 /100WBC; PLATELET COUNT* 359 thou/uL (150-400); POLYS 67.5 %; RBC 4.36 mil/uL (4.50-6.00); RDW-CV 16.2 % (10.5-14.5); WBC 5.7 thou/uL (4.0-11.0)
[2019-06-25 06:12] LABS: ALBUMIN 2.7 g/dL (3.4-5.0); PHOSPHORUS* 2.7 mg/dL (2.5-4.9); POTASSIUM 3.6 mmol/L (3.5-5.1); TOTAL BILIRUBIN 0.4 mg/dL (<0.1-1.0); TOTAL PROTEIN 6.7 g/dL (6.4-8.2)
[2019-06-25 08:23] VITALS: BP 135/58
[2019-06-25 12:12] VITALS: BP 114/56
[2019-06-25 16:58] VITALS: BP 142/63
[2019-06-25 20:19] VITALS: BP 143/60
[2019-06-25 23:51] VITALS: BP 120/58
[2019-06-26 04:00] VITALS: BP 132/63
[2019-06-26 06:22] LABS: ALBUMIN 2.5 g/dL (3.4-5.0); CALCIUM 10.1 mg/dL (8.5-10.1); CREATININE 1.1 mg/dL (0.6-1.3); MAGNESIUM 1.9 mg/dL (1.8-2.4); PHOSPHORUS* 2.3 mg/dL (2.5-4.9); POTASSIUM 3.7 mmol/L (3.5-5.1); TOTAL BILIRUBIN 0.4 mg/dL (<0.1-1.0); TOTAL PROTEIN 6.4 g/dL (6.4-8.2)
[2019-06-26 06:24] LABS: ABSOLUTE LYMPHOCYTES 1.2 thou/uL (0.8-5.3); ABSOLUTE MONOCYTES 0.7 thou/uL (0.0-1.2); ABSOLUTE NEUTROPHILS 3.9 thou/uL (1.6-8.1); BASOPHILS 0.8 %; EOSINOPHILS 0.1 %; HEMOGLOBIN 12.5 gm/dL (14.0-18.0); LYMPHOCYTES 20.5 %; MCH 28.3 pg (26.0-34.0); MCHC 33.8 g/dL (28.0-37.0); MCV 83.8 fL (80.0-100.0); MONOCYTES 12.2 %; MPV 7.2 fl. (7.2-11.1); NUCLEATED RBCS 0 /100WBC; PLATELET COUNT* 331 thou/uL (150-400); POLYS 66.4 %; RBC 4.42 mil/uL (4.50-6.00); RDW-CV 16.4 % (10.5-14.5); WBC 5.9 thou/uL (4.0-11.0)
[2019-06-26 08:00] VITALS: BP 132/63
[2019-06-26 12:00] VITALS: BP 109/52
[2019-06-26 13:03] LABS: PROTIME 149.5 Seconds (9.20-11.50)
[2019-06-26 13:05] LABS: INR 16.2
[2019-06-26 16:00] VITALS: BP 145/65
[2019-06-26 19:56] VITALS: BP 124/61
[2019-06-27] VITALS: BP 126/63
[2019-06-27 04:00] VITALS: BP 128/74
[2019-06-27 08:16] VITALS: BP 126/68
[2019-06-27 10:17] LABS: ABSOLUTE LYMPHOCYTES 1.1 thou/uL (0.8-5.3); ABSOLUTE MONOCYTES 0.5 thou/uL (0.0-1.2); ABSOLUTE NEUTROPHILS 2.5 thou/uL (1.6-8.1); BASOPHILS 1.1 %; EOSINOPHILS 0.1 %; HEMATOCRIT 39.1 % (42.0-52.0); LYMPHOCYTES 27.1 %; MCH 28.3 pg (26.0-34.0); MCHC 33.4 g/dL (28.0-37.0); MCV 84.7 fL (80.0-100.0); MONOCYTES 11.5 %; MPV 7.6 fl. (7.2-11.1); NUCLEATED RBCS 0 /100WBC; PLATELET COUNT* 357 thou/uL (150-400); POLYS 60.2 %; RBC 4.62 mil/uL (4.50-6.00); RDW-CV 16.9 % (10.5-14.5); WBC 4.1 thou/uL (4.0-11.0)
[2019-06-27 10:24] LABS: PROTIME 70.9 Seconds (9.20-11.50)
[2019-06-27 10:26] LABS: INR 7.4
[2019-06-27 10:29] LABS: ALBUMIN 3.2 g/dL (3.4-5.0); CALCIUM 10.2 mg/dL (8.5-10.1); CREATININE 1.2 mg/dL (0.6-1.3); PHOSPHORUS* 2.7 mg/dL (2.5-4.9); POTASSIUM 3.9 mmol/L (3.5-5.1); TOTAL BILIRUBIN 0.5 mg/dL (<0.1-1.0); TOTAL PROTEIN 7.2 g/dL (6.4-8.2)
[2019-06-27 11:52] VITALS: BP 108/46
[2019-06-27 16:51] VITALS: BP 95/71
[2019-06-27 20:00] VITALS: BP 114/61
[2019-06-28 00:03] VITALS: BP 113/92
[2019-06-28 04:34] VITALS: BP 122/51
[2019-06-28 06:32] LABS: ABSOLUTE LYMPHOCYTES 1.1 thou/uL (0.8-5.3); ABSOLUTE MONOCYTES 0.5 thou/uL (0.0-1.2); ABSOLUTE NEUTROPHILS 2.1 thou/uL (1.6-8.1); BASOPHILS 0.7 %; HEMATOCRIT 37.2 % (42.0-52.0); HEMOGLOBIN 12.4 gm/dL (14.0-18.0); LYMPHOCYTES 30.5 %; MCH 28.3 pg (26.0-34.0); MCHC 33.5 g/dL (28.0-37.0); MCV 84.4 fL (80.0-100.0); MPV 7.2 fl. (7.2-11.1); NUCLEATED RBCS 0 /100WBC; PLATELET COUNT* 303 thou/uL (150-400); POLYS 54.8 %; RDW-CV 16.8 % (10.5-14.5); WBC 3.8 thou/uL (4.0-11.0)
[2019-06-28 06:43] LABS: PROTIME 40.7 Seconds (9.20-11.50)
[2019-06-28 06:54] LABS: CALCIUM 9.8 mg/dL (8.5-10.1); CREATININE 1.2 mg/dL (0.6-1.3); POTASSIUM 3.6 mmol/L (3.5-5.1); TOTAL BILIRUBIN 0.4 mg/dL (<0.1-1.0); TOTAL PROTEIN 6.7 g/dL (6.4-8.2)
[2019-06-28 07:00] LABS: INR 4.2
[2019-06-28 08:47] VITALS: BP 131/81
[2019-06-28 11:53] VITALS: BP 119/49
[2019-06-28 17:07] VITALS: BP 133/66
[2019-06-28 21:33] VITALS: BP 127/61
[2019-06-29] VITALS: BP 129/63
[2019-06-29 04:00] VITALS: BP 124/68
[2019-06-29 06:40] LABS: INR 2.4; PROTIME 23.9 Seconds (9.20-11.50)
[2019-06-29 08:00] VITALS: BP 112/65
[2019-06-29 12:00] VITALS: BP 123/61
[2019-06-29 16:59] VITALS: BP 136/61
[2019-06-29 20:00] VITALS: BP 137/61
[2019-06-30] VITALS: BP 124/66
[2019-06-30 04:00] VITALS: BP 129/65
[2019-06-30 05:16] LABS: INR 1.8; PROTIME 18.5 Seconds (9.20-11.50)
[2019-06-30 08:00] VITALS: BP 126/87
[2019-06-30 16:12] VITALS: BP 136/68
[2019-06-30 20:00] VITALS: BP 126/61
[2019-07-01] VITALS: BP 122/49
[2019-07-01 04:00] VITALS: BP 110/49
[2019-07-01 05:30] LABS: HEMATOCRIT 36.5 % (42.0-52.0); HEMOGLOBIN 12.2 gm/dL (14.0-18.0); MCH 28.5 pg (26.0-34.0); MCHC 33.5 g/dL (28.0-37.0); MCV 84.8 fL (80.0-100.0); MPV 7.7 fl. (7.2-11.1); RBC 4.3 mil/uL (4.50-6.00); RDW-CV 16.8 % (10.5-14.5); WBC 3.4 thou/uL (4.0-11.0)
[2019-07-01 05:35] LABS: ALBUMIN 3.2 g/dL (3.4-5.0); CALCIUM 9.6 mg/dL (8.5-10.1); CREATININE 1.4 mg/dL (0.6-1.3)
[2019-07-01 05:36] LABS: INR 1.7; PROTIME 17.1 Seconds (9.20-11.50)
[2019-07-01 08:00] VITALS: BP 95/50
[2019-07-01 12:00] VITALS: BP 115/61
[2019-07-01 20:30] VITALS: BP 129/65
[2019-07-02] VITALS: BP 156/80
[2019-07-02 04:00] VITALS: BP 122/55
[2019-07-02 06:10] LABS: INR 1.6; PROTIME 16.5 Seconds (9.20-11.50)
[2019-07-02 06:59] LABS: HEMATOCRIT 37.6 % (42.0-52.0); HEMOGLOBIN 12.5 gm/dL (14.0-18.0); MCH 28.4 pg (26.0-34.0); MCHC 33.2 g/dL (28.0-37.0); MCV 85.6 fL (80.0-100.0); MPV 7.8 fl. (7.2-11.1); RBC 4.39 mil/uL (4.50-6.00); RDW-CV 17.3 % (10.5-14.5); WBC 3.2 thou/uL (4.0-11.0)
[2019-07-02 07:18] LABS: ALBUMIN 3.3 g/dL (3.4-5.0); CALCIUM 10.6 mg/dL (8.5-10.1); CREATININE 1.3 mg/dL (0.6-1.3); POTASSIUM 4.4 mmol/L (3.5-5.1); TOTAL BILIRUBIN 0.5 mg/dL (<0.1-1.0); TOTAL PROTEIN 6.1 g/dL (6.4-8.2)
[2019-07-02 08:00] VITALS: BP 126/56
[2019-07-02 11:50] VITALS: BP 128/55
[2019-07-02 16:19] VITALS: BP 115/62
[2019-07-02 20:30] VITALS: BP 115/49
[2019-07-03] VITALS (7 sets, daily range): BP systolic 111–145; BP diastolic 54–63
[2019-07-03 06:38] LABS: PROTIME 19.6 Seconds (9.20-11.50)
[2019-07-03 06:48] LABS: ALBUMIN 3.4 g/dL (3.4-5.0); CALCIUM 10.7 mg/dL (8.5-10.1); CREATININE 1.5 mg/dL (0.6-1.3); POTASSIUM 4.2 mmol/L (3.5-5.1)
[2019-07-03 13:51] LABS: HEMATOCRIT 38.4 % (42.0-52.0); HEMOGLOBIN 12.8 gm/dL (14.0-18.0); MCH 28.4 pg (26.0-34.0); MCHC 33.4 g/dL (28.0-37.0); MCV 84.9 fL (80.0-100.0); MPV 7.8 fl. (7.2-11.1); RBC 4.53 mil/uL (4.50-6.00); RDW-CV 17.3 % (10.5-14.5); WBC 3.3 thou/uL (4.0-11.0)
[2019-07-04] VITALS (7 sets, daily range): BP systolic 106–132; BP diastolic 52–66
[2019-07-04 05:32] LABS: HEMATOCRIT 37.6 % (42.0-52.0); HEMOGLOBIN 12.8 gm/dL (14.0-18.0); MCH 28.9 pg (26.0-34.0); MCHC 33.9 g/dL (28.0-37.0); MCV 85.2 fL (80.0-100.0); MPV 7.5 fl. (7.2-11.1); RBC 4.41 mil/uL (4.50-6.00); RDW-CV 17.4 % (10.5-14.5)
[2019-07-04 05:46] LABS: ALBUMIN 3.6 g/dL (3.4-5.0); CALCIUM 10.6 mg/dL (8.5-10.1); CREATININE 1.5 mg/dL (0.6-1.3); POTASSIUM 4.2 mmol/L (3.5-5.1)
[2019-07-04] MEDS ORDERED: DIPHENHYDRAMINE25 M3 PO (13:01)
[2019-07-04] MEDS ORDERED: MYLICON DR40 MG/0.1 PO (13:05)
[2019-07-04] MEDS ORDERED: PROTONIX40 M4 PO (13:08)
[2019-07-04] MEDS ORDERED: ZOFRAN4 MG PO (13:10)
[2019-07-04] MEDS ORDERED: SENNA PLUS TAB1 EACH PO (13:10)
[2019-07-04] MEDS ORDERED: ACETAMINOPHEN325 MG PO (13:13)
[2019-07-04] MEDS ORDERED: FLUCONAZOLE200 MG PO (13:27)
== END 2019-07-04 15:05 | disposition home health service (06) | DRG 871 ==
LOC: M.ERS 15:22 → M.ORTHSURG 17:46 → M.TBA-ER 17:46 → M.ORTHSURG 20:44
PROVIDERS: Emergency Medicine; Internal Medicine; Pediatrics; Student in an Organized Health Care Education/Training Program; ADMIT Family Medicine
DX: A41.9 Sepsis, unspecified organism (principal); G93.41 Metabolic encephalopathy; U07.1 COVID-19; J12.89 Other viral pneumonia; J96.01 Acute respiratory failure with hypoxia; E43 Unspecified severe protein-calorie malnutrition; N39.0 Urinary tract infection, site not specified; E87.1 Hypo-osmolality and hyponatremia; D68.59 Other primary thrombophilia; B37.89 Other sites of candidiasis; G43.909 Migraine, unspecified, not intractable, without status migrainosus; G47.33 Obstructive sleep apnea (adult) (pediatric); B96.20 Unspecified Escherichia coli [E. coli] as the cause of diseases classified elsewhere; E11.22 Type 2 diabetes mellitus with diabetic chronic kidney disease; E87.6 Hypokalemia; M75.42 Impingement syndrome of left shoulder; F03.90 Unspecified dementia, unspecified severity, without behavioral disturbance, psychotic disturbance, mood disturbance, and anxiety; N18.9 Chronic kidney disease, unspecified; Z96.1 Presence of intraocular lens; Z96.651 Presence of right artificial knee joint; I69.320 Aphasia following cerebral infarction; Z99.81 Dependence on supplemental oxygen; I69.398 Other sequelae of cerebral infarction; Z88.5 Allergy status to narcotic agent; Z88.0 Allergy status to penicillin; Z88.8 Allergy status to other drugs, medicaments and biological substances; Z87.891 Personal history of nicotine dependence; Z85.828 Personal history of other malignant neoplasm of skin; Z79.899 Other long term (current) drug therapy; Z68.30 Body mass index [BMI] 30.0-30.9, adult